=== PATIENT | male | born 1935 | race Caucasian/White ===

== ENCOUNTER → 2021-08-03 11:08 | Outpatient (CLI) | payer MEDICARE, SELFPAY ==
--- NOTE | 2021-08-03 11:14 | RAD_ITS ---
INDICATION: DYSPNEA EXAMINATION/TECHNIQUE: X-RAY - XR Chest 2 Views COMPARISON: None. FINDINGS: LINES/DEVICES: None. Sternotomy wires are present. There is a percutaneous recording device projecting over the left heart. There is a artificial valve, likely mitral. LUNGS: Right lower lobe thin linear opacities and increased density likely represents atelectasis. Less likely, nodule could have this appearance in the lateral view. Lungs otherwise clear. Lung volumes are within normal limits. MEDIASTINUM AND CARDIOVASCULAR STRUCTURES: Normal size and contour of the cardiomediastinal silhouette. No evidence of pulmonary vascular congestion. BONES AND SOFT TISSUES: There is a 9 mm wide opacity projecting over the level of the mid diaphragm may represent hiatal hernia. This is not visible on the lateral view. Less likely aortic aneurysm could have this appearance. Correlation with prior imaging or CT chest is recommended. RAD/Chest PA and Lateral IMPRESSION: 1. Right lower lobe suspected atelectasis however nodule cannot be completely excluded on the lateral view. 2. Focal opacity projecting over the midline diaphragm, AP view, not visible on lateral view of uncertain etiology. Somewhat atypical appearance for hiatal hernia. Mass or aortic aneurysm is not excluded. Correlation with CT chest is limited. Electronically Signed: Prabhu Pearce DO at 23:41 EDT Tel , Service support ,
== END ==
PROVIDERS: Referring Provider Internal Medicine Pulmonary Disease; Visit Provider Internal Medicine Pulmonary Disease
DX: R06.00 Dyspnea, unspecified (principal)
CPT/HCPCS: 71046

== ENCOUNTER → 2021-08-12 08:49 | Outpatient (CLI) | payer MEDICARE, SELFPAY ==
[2021-08-12 11:05] LABS: BNP,B-Type NATRIURETIC PEPTIDE 54.4 pg/mL (0-100)
== END ==
PROVIDERS: Referring Provider Internal Medicine Pulmonary Disease; Visit Provider Internal Medicine Pulmonary Disease
DX: R06.00 Dyspnea, unspecified (principal); I25.10 Atherosclerotic heart disease of native coronary artery without angina pectoris
CPT/HCPCS: 36415; 83880

== ENCOUNTER → 2021-08-17 11:22 | Outpatient (CLI) | payer MEDICARE, SELFPAY ==
--- NOTE | 2021-08-17 11:26 | RAD_ITS ---
PROCEDURE: Sniff test. DATE OF EXAMINATION: 08/17/2021. INDICATION: Male, 85 years old. Shortness of breath. FLUOROSCOPY TIME (if supplied): (17 seconds) minutes/seconds. 2 images were obtained. No evidence of diaphragmatic paralysis. Moderate-sized hiatal hernia. RAD/Chest Sniff Test Fluoro Only IMPRESSION: No evidence of diaphragmatic paralysis. Moderate-sized hiatal hernia. Electronically Signed: Jay Pope MD at 12:12 EDT , Service support ,
--- NOTE | 2021-08-17 11:35 | CT_ITS ---
STUDY: CT CHEST WITHOUT CONTRAST REASON FOR EXAM: Male, 85 years old. LUNG NODULE/DYSPNEA. COPD. RADIATION DOSAGE (If Supplied By Facility): CTDIvol = ( 8.86 ) mGy, DLP = ( 250.68 ) mGycm TECHNIQUE: Transaxial imaging was performed without the administration of intravenous contrast material. Multiplanar coronal and sagittal images were reformatted. Individualized dose optimization techniques were used for this CT. COMPARISON: Comparison is made with prior chest radiograph dated 08/03/2021. FINDINGS: Mild increased linear markings at the lung bases suggestive of atelectasis and/or scarring. There is no demonstrated pleural abnormality. Sternal cerclage wires and vascular clips are present from a prior sternotomy and coronary artery bypass graft procedure (CABG). There are calcifications of the coronary arteries. There are multiple small lymph nodes within the mediastinum, which are normal in size and morphology most compatible with reactive lymph hyperplasia. Normal hilar regions. Normal unenhanced pulmonary arteries. There is atherosclerotic calcification of the aortic arch with tortuosity and elongation of the aortic arch and descending thoracic aorta. There are multi-level degenerative changes of the thoracic spine. Increased kyphosis. Moderate sized hiatal hernia. CT/Chest without Contrast IMPRESSION: Mild increased markings at the lung bases suggestive of linear atelectasis and/or scarring. Moderate sized hiatal hernia. Electronically Signed: Jay Pope MD at 15:46 EDT , Service support ,
== END ==
PROVIDERS: Referring Provider Internal Medicine Pulmonary Disease; Visit Provider Internal Medicine Pulmonary Disease
DX: R91.1 Solitary pulmonary nodule (principal); R06.00 Dyspnea, unspecified
CPT/HCPCS: 71250; 76000

== ENCOUNTER → 2023-12-12 | Outpatient (CLI) | payer MEDICARE, SELFPAY ==
--- NOTE | 2023-12-12 13:53 | RAD_ITS ---
HISTORY: COUGH,SOB. TECHNIQUE: XR Chest 2 Views. COMPARISON: 08/03/2021. FINDINGS: CARDIOMEDIASTINAL BORDERS: Cardiac silhouette within normal limits in size with valve prosthesis and implanted leadless pacemaker again seen. Mediastinal contour unchanged with midline sternotomy and coronary artery bypass graft. Large hiatal hernia with a fluid fluid level. LUNGS: Mild linear bibasilar scarring again seen. PLEURA: No pleural effusion or pneumothorax seen. OSSEOUS STRUCTURES: Degenerative change. Lumbar spinal fusion hardware noted. RAD/Chest PA and Lateral IMPRESSION: Chronic mild scarring in the lung bases. Large hiatal hernia. Electronically Signed: Scarlet Smith MD at 8:47 EST ,
== END | disposition home or self-care (01) ==
LOC: MTRAD 13:51
PROVIDERS: Referring Provider Internal Medicine Pulmonary Disease; Visit Provider Internal Medicine Pulmonary Disease
DX: R05.9 Cough, unspecified (principal)
CPT/HCPCS: 71046

== ENCOUNTER → 2024-04-15 | Outpatient (CLI) | payer MEDICARE, SELFPAY ==
[2024-04-15 11:28] LABS: Absolute Lymphocyte Count 1.41 X10^3/uL (0.83-4.51); Absolute Neutrophil Count 5.7 X10^3/uL (2.0-7.7); Basophil# 0.04 X10^3/uL; Basophil% 0.5 % (0-1); Eosinophil# 0.37 X10^3/uL; Eosinophils% 4.4 % (0-5); Hematocrit 42.4 % (40-54); Hemoglobin 13.4 g/dL (13.0-16.5); Lymphocyte # 1.41 X10^3/ul (0.83-4.51); Lymphocyte % 16.7 % (19-41); Mean Corp Hgb Conc 31.6 g/dL (32-36); Mean Corpuscular Hgb 27.1 pg (27.0-32.0); Mean Corpuscular Volume 85.7 fL (80-94); Mean Platelet Vol. 10.5 fl (6.2-12.0); Monocyte% 10.7 % (0-10); NRBC Flagged by Analyzer 0 % (0-5); Neutrophil # 5.68 X10^3/uL (2.7-7.7); Neutrophil % 67.3 % (47-70); Platelet Count 169 K/mm3 (150-450); RBC Distribution Width CV 16.5 % (11.6-14.6); RBC Distribution Width SD 51.7 fl (35.1-43.9); Red Blood Count 4.95 M/mm3 (4.6-6.2); White Blood Count 8.4 K/mm3 (4.4-11.0)
[2024-04-15 11:39] LABS: Partial Thromboplast Time 28.9 Seconds (24.1-36.2)
[2024-04-15 11:51] LABS: BNP,B-Type NATRIURETIC PEPTIDE 99.8 pg/mL (0-100)
[2024-04-15 11:52] LABS: Anion Gap 6 (5-15); BUN 19 mg/dL (7-18); BUN/Creat Ratio 17.9 RATIO (10-20); Calcium,Total 9.4 mg/dL (8.5-10.1); Chloride 109 mmol/L (98-107); Creatinine, Serum 1.06 mg/dL (0.70-1.30); EST Glomerular Filtration Rate 70 mL/min (>60); Est Glom Filt Rate - Afr Amer 85 mL/min (>60); Glucose 161 mg/dL (74-106); Potassium 4.2 mmol/L (3.5-5.1); Sodium Level 143 mmol/L (136-145)
== END | disposition home or self-care (01) ==
LOC: LAB 11:00
PROVIDERS: PCP Family Medicine; Referring Provider Internal Medicine Cardiovascular Disease; Visit Provider Internal Medicine Cardiovascular Disease
DX: J44.9 Chronic obstructive pulmonary disease, unspecified (principal); R06.02 Shortness of breath
CPT/HCPCS: 36415; 80048; 83880; 85025; 85730

== ENCOUNTER 2024-04-23 06:34 | Day surgery (SDC) | payer MEDICARE, SELFPAY ==
[2024-04-22 10:20] VITALS: BMI 25.7
[2024-04-23 08:22] LABS: Blood Gas Specimen Type VEN; O2 Delivery Device Not entered; SITE Not entered; VBG BASE EXCESS -2 mmol/L (-1.0-3.5); VBG Bicarbonate 23 mmol/L (22-26); VBG PO2 34 mmHg (25-40); VBG SO2 66 % (50-70); VBG TCO2 24 mmol/L (23-33); VBG pCO2 37.3 mmHg (41-51)
[2024-04-23 08:27] LABS: Base Excess -2 mmol/L (-2 to +2); Bicarbonate 22.4 mmol/L (22-26); Blood Gas Specimen Type ART; Mode Not entered; O2 Delivery Device Not entered; PO2 85 mmHG (75-100); SITE Not entered; SO2 97 % (95-99); Total Carbon Dioxide 23 mmol/L; pCO2 31.6 mmHg (35-45); pH 7.46 (7.35-7.45)
[2024-04-23 08:32] LABS: Blood Gas Specimen Type VEN; O2 Delivery Device Not entered; SITE Not entered; VBG BASE EXCESS -1 mmol/L (-1.0-3.5); VBG Bicarbonate 25 mmol/L (22-26); VBG PO2 35 mmHg (25-40); VBG SO2 65 % (50-70); VBG TCO2 26 mmol/L (23-33); VBG pCO2 43.1 mmHg (41-51); VBG pH 7.37 (7.32-7.42)
--- NOTE | 2024-04-23 18:18 | CL.D_ITS ---
Patient Name: ALEX GUEVARA Study Date: 04/23/2024 Performing: Jorge Avelar MD Ht: 66 inches 167.64 cm : 1935 Wt: 159 lbs 72.12 kg Age: 88 Gender: male BSA: 1.81 PROCEDURE(S) PERFORMED [id number])RHC/LHC/COR/CABG CLINICAL PROFILE AND INDICATIONS Indications: Other Heart Failure: NYHA Class: 2, Newly Diagnosed: Yes, Heart Failure Type: Diastolic Stress/Imaging Stress/Image Study Performed: No CAD Presentations: Other: SOB CONCLUSIONS Severe coronary disease with patent coronary bypass grafts, upon normal pulmonary artery pressures, normal wedge pressure, normal end diastolic pressure in the ventricle RECOMMENDATIONS Patient's symptomatology unlikely to be secondary to coronary disease or valvular disease. DESCRIPTION OF PROCEDURE The patient arrived to the procedure lab. The risks and benefits of the procedure as well as a full description of our services here and current unavailability of surgical backup were fully explained to the patient and/or their significant other prior to the catheterization. The Timeout was completed, verifying the correct patient and procedure. The patient's procedural site was prepped and draped in the usual fashion. Local anesthetic was given subcutaneously to right groin region with Lidocaine 2%. Using a modified Seldinger technique, arterial access was obtained via the right femoral artery, a 7Fr sheath was inserted. A 7Fr thermal dilution catheter was inserted and right heart pressures were recorded, it was then advanced to PA position for cardiac outputs. Thermal dilution cardiac outputs were then recorded. O2 saturations were then obtained. Simultaneous pressures were then recorded. The Thermal dilution catheter was then removed. Left Coronary Artery selective angiography was performed in multiple views using a 5 Fr. JL4 catheter. Saphenous Vein graft to the RCA selective angiography was performed in multiple views using a 5 Fr. 3DRC (Partha) catheter. Right Coronary Artery selective angiography was then performed in multiple views using a 5 Fr. 3DRC (Partha) catheter. Left internal mammary artery graft to the LAD selective angiography was performed in multiple views using a 5 Fr. IM catheter. Saphenous Vein graft to the OM 1 seg to OM 2 selective angiography was performed in multiple views using a 5 Fr. JR 5 catheter.Contrast was injected through the sheath and the Right Iliac and Femoral artery were assessed for possible closure device. CORONARY ANGIOGRAPHY DOMINANCE: Co- Dominant LEFT HEART ASSESSMENT Left Ventricular Ejection Fraction: by Echo 60 % Normal Left Ventricular systolic function RIGHT HEART ASSESSMENT Thermal CO: 4.2 Thermal CI: 2.32 PW: 15/15 14 PA: 30/11 20 RV: 31/2 9 RA: / 7 PVR: 114 Right Heart pressures - normal No evidence of equalization of pressures suggesting pericardial constriction LEFT MAIN: Severely diseased vessel. LEFT ANTERIOR DESCENDING ARTERY: Vessel severely diseased with early occlusion in the midsegment after the septal lamp shade joiner CIRCUMFLEX ARTERY: Codominant vessel with the first obtuse marginal branch with moderate disease in the second obtuse marginal branch which was bypassed with severe proximal disease. The vessel continues with moderate distal luminal irregularities noted in the posterior descending artery. RIGHT CORONARY ARTERY: Totally occluded proximally. GRAFTS: ROTH graft to the Mid LAD is patent Saphenous Vein graft to the RCA This vessel anastomosis with an acute marginal vessel which continues as a posterior descending vessel. Sequential graft to the Obtuse marginal 1 and 2 with distal vessel demonstrating mild disease only. VALVE FINDINGS: Bioprosthetic COMPLICATIONS No Complications PROCEDURE MEDICATIONS Versed 1 mg IV Versed 1 mg IV Baby Aspirin (81mg) 1 Tabs PO @ 04/23/2024 07:12:03 SUMMARY OF HEMODYNAMIC DATA Time AIR REST ECG 07:07:55 ECG 07:59:27 ECG 07:59:32 RA 9/9 (7) SV 08:15:53 RV 31/2, 9 08:16:21 RV 29/2, 10 08:16:34 PW 15/15 (14) PV 08:23:53 PA 30/11 (20) PA 08:24:07 LV 133/3, 13 08:34:42 PW 22/20 (16) 08:34:42 LV 131/3, 13 08:34:52 PW 20/18 (16) 08:34:52 LV 130/4, 13 08:35:24 PA 38/16 (24) 08:35:24 LV 139/3, 14 08:35:34 PA 40/14 (25) 08:35:34 LV 0/-3, -2 08:47:37 RV 33/9, 14 08:47:37 LV 0/-3, -2 08:47:49 RA 6 (3) 08:47:49 AO 139/62 (91) SA 08:50:18 AO 134/61 (93) 08:53:37 AO 125/57 (85) 09:00:48 AIR REST 11:09:58 Type SV CO (l/m) CI (l/m/ HR Time AIR REST Thermal 175.10 4.20 2.32 24 07:07:55 Label % O2 Pres/Loc Time AIR REST AO 97 PV 08:46:13 PA 65 PA 08:46:24 RA 66 SV 08:46:27 Signed By Jorge Avelar MD On 04/23/2024 18:17:11 Jorge Avelar MD
== END 2024-04-23 12:49 | disposition home or self-care (01) ==
PROVIDERS: PCP Family Medicine; Referring Provider Internal Medicine Cardiovascular Disease; Visit Provider Internal Medicine Cardiovascular Disease
DX: I25.10 Atherosclerotic heart disease of native coronary artery without angina pectoris (principal); I50.30 Unspecified diastolic (congestive) heart failure; J44.9 Chronic obstructive pulmonary disease, unspecified; I48.0 Paroxysmal atrial fibrillation; E03.9 Hypothyroidism, unspecified; Z79.899 Other long term (current) drug therapy; Z79.82 Long term (current) use of aspirin; Z95.1 Presence of aortocoronary bypass graft; Z95.0 Presence of cardiac pacemaker
CPT/HCPCS: 82803; 93457; 99152; 99153; C1760; J7040; Q9967; C1751; C1769; C1894

== ENCOUNTER 2024-05-17 13:26 | Outpatient (CLI) | payer MEDICARE, SELFPAY ==
[2024-05-17 14:36] LABS: Erythrocyte Sedimentation Rate 10 mm/hr (0-20)
[2024-05-17 14:38] LABS: Absolute Lymphocyte Count 1.54 X10^3/uL (0.83-4.51); Absolute Neutrophil Count 4.4 X10^3/uL (2.0-7.7); Basophil# 0.04 X10^3/uL; Basophil% 0.6 % (0-1); Eosinophil# 0.37 X10^3/uL; Eosinophils% 5.2 % (0-5); Hematocrit 45.9 % (40-54); Hemoglobin 14.7 g/dL (13.0-16.5); Lymphocyte # 1.54 X10^3/ul (0.83-4.51); Lymphocyte % 21.7 % (19-41); Mean Corpuscular Hgb 27.8 pg (27.0-32.0); Mean Corpuscular Volume 86.8 fL (80-94); Mean Platelet Vol. 10.3 fl (6.2-12.0); Monocyte# 0.67 X10^3/uL; Monocyte% 9.4 % (0-10); NRBC Flagged by Analyzer 0 % (0-5); Neutrophil # 4.44 X10^3/uL (2.7-7.7); Neutrophil % 62.5 % (47-70); Platelet Count 188 K/mm3 (150-450); RBC Distribution Width CV 17.2 % (11.6-14.6); RBC Distribution Width SD 54.8 fl (35.1-43.9); Red Blood Count 5.29 M/mm3 (4.6-6.2); White Blood Count 7.1 K/mm3 (4.4-11.0)
[2024-05-17 14:57] LABS: CRP 4.06 mg/L (0.0-3.0)
[2024-05-19 08:08] LABS: CRP, High Sensitivity 2.96 mg/L (0.00-3.00)
[2024-05-20 15:08] LABS: Angiotensin Convert Enzyme 69 U/L (14-82)
== END 2024-05-17 23:59 | disposition home or self-care (01) ==
LOC: MTLAB 13:27
PROVIDERS: PCP Family Medicine; Referring Provider Internal Medicine Pulmonary Disease; Visit Provider Internal Medicine Pulmonary Disease
DX: R06.02 Shortness of breath (principal); R05.9 Cough, unspecified; I25.10 Atherosclerotic heart disease of native coronary artery without angina pectoris
CPT/HCPCS: 36415; 82164; 85025; 85652; 86140; 86141